=== PATIENT | female | born 1980 | race Caucasian/White ===

== ENCOUNTER 2016-11-18 05:22 | Day surgery (SDC) | payer OTHER ==
[2016-11-17 09:04] VITALS: BMI 21.1
[~2016-11-18] VITALS: Ht 157.5 cm; Wt 52.5 kg
[2016-11-18] VITALS (9 sets, daily range): BP systolic 97–114; BP diastolic 53–63; PULSE 62–86; RESP 14–18; Ht 157.5 cm; Wt 52.5 kg
[2016-11-18] MEDS ORDERED: LACTATED RINGER'S 1,000 ML IV* SCH (06:00)
[2016-11-18] MEDS ORDERED: CEFAZOLIN 2 GM/50 ML (PMX) 50 ML IVPB ONE (06:00)
[2016-11-18] MEDS ORDERED: LIDOCAINE 2% (SDV) 5 ML INJ ONE (06:46)
[2016-11-18] MEDS ORDERED: PROPOFOL 20 ML ONE (06:46)
[2016-11-18] MEDS ORDERED: ROCURONIUM 50 MG INJ ONE (06:46)
[2016-11-18] MEDS ORDERED: GLYCOPYRROLATE 0.4 MG INJ ONE (06:46)
[2016-11-18] MEDS ORDERED: FENTAnyl 50 MCG/ML VIAL ONE (06:46)
[2016-11-18] MEDS ORDERED: MIDAZOLAM 1 MG/ML 2 ML INJ ONE (06:46)
[2016-11-18] MEDS ORDERED: NEOSTIGMINE 3 MG/3 ML SYRINGE ONE (06:46)
[2016-11-18] MEDS ORDERED: ONDANSETRON 4 MG INJ ONE (06:51)
[2016-11-18] MEDS ORDERED: morphine (1 MG/ML) 10ML SYRINGE IV PRN ×3 (07:00)
[2016-11-18] MEDS ORDERED: MIDAZOLAM 1 MG/ML 2 ML INJ IV PRN (07:00)
[2016-11-18] MEDS ORDERED: ATROPINE 1 MG/10 ML SYRINGE IV PRN (07:00)
[2016-11-18] MEDS ORDERED: FENTAnyl 50 MCG/ML VIAL IV PRN ×2 (07:00)
[2016-11-18] MEDS ORDERED: LABETALOL HCL 20MG INJ IV PRN (07:00)
[2016-11-18] MEDS ORDERED: HYDROmorphONE (0.2 MG/ML) 10ML SYG IV PRN ×3 (07:00)
[2016-11-18] MEDS ORDERED: DIPHENHYDRAMINE 50 MG INJ IV PRN (07:00)
[2016-11-18] MEDS ORDERED: MEPERIDINE 25 MG INJ IV PRN (07:00)
[2016-11-18] MEDS ORDERED: EPHEDrine SULFATE 50 MG/5 ML SYG IV PRN (07:00)
[2016-11-18] MEDS ORDERED: OXYCODONE/ACETAMINOPHEN (5/325) TAB PO PRN ×2 (07:00)
[2016-11-18] MEDS ORDERED: hydrALAzine 20 MG INJ IV PRN (07:00)
[2016-11-18] MEDS ORDERED: ONDANSETRON 4 MG INJ IV PRN (07:00)
[2016-11-18] MEDS ORDERED: KETOROLAC 30 MG INJ ONE (08:08)
--- NOTE | 2016-11-18 09:44 | OPR ---
DATE OF OPERATION: PREOPERATIVE DIAGNOSIS: The patient desires permanent sterilization by Essure hysteroscopic techniq ue. POSTOPERATIVE DIAGNOSIS: The patient desires permanent sterilization by Essure hysteroscopic techni que. OPERATION PERFORMED: Essure hysteroscopic bilateral tubal ligation. SURGEON: Steve Traylor MD ESTIMATED BLOOD LOSS: Minimal. COMPLICATIONS: None. CONSENT: I discussed with the patient the risks, benefits, indications, and alternatives of the pro cedure including, but not limited to, the risk of infection, bleeding, damage to other organs, possi bility of having complications with pain due to movements of the implant, the possibility of develop ing chronic pelvic pain without any specific reason after the Essure and the need for hysterectomy t o alleviate the pain were discussed with the patient at great length and other alternatives of perma nent sterilization, as well as reversible sterilization techniques were discussed with the patient. She was allowed to ask questions. All of her questions were answered, and informed consent was obt ained. DESCRIPTION OF PROCEDURE: She was taken to the operating room and general anesthesia was given. Sh e was prepped and draped in the usual sterile fashion in the dorsal lithotomy position. A surgical timeout was done. The anterior lip of the cervix was grasped using a single tooth tenaculum and the cervix was hydrodilated. Both tubes were visualized easily and the Essure implant was inserted int o the right tube to the black line. It was wheeled back to a hard stop. The gold line was visualiz ed and the implant was released and 3 cords were visualized. Same procedure was done on contralater al side and 3 cords were visualized and the procedure was completed, and all instruments tenaculum w as removed. There was no bleeding. The patient tolerated the procedure well. Dictated By: ANGELO TRAYLOR MD FY/NTS Conf#: [id number] DID#: [id number]
--- NOTE | 2016-11-18 19:19 | RADRPT ---
Vent Rate: 54 bpm RR Interval: 0 msec MD Interval: 144 msec QRS Duration: 80 msec QT Interval: 430 msec QTC Interval: 407 msec P-R-T [place]: 57 - 63 - 65 degrees Sinus bradycardia Otherwise normal ECG Electronically Signed By: Sang Shirley [id number]
== END 2016-11-18 11:25 | disposition home or self-care (01) ==
LOC: SDS 05:22
PROVIDERS: ATTEND Specialist
DX: Z30.2 Encounter for sterilization (principal)
CPT/HCPCS: 58565; 93005; A4264; J1885; J2175; J2250; J2405; J2710; J3010; Z7512; Z7610